=== PATIENT | male | born 1980 | race American Indian/Alaskan Native ===

== ENCOUNTER 2017-04-14 01:59 | Emergency (ER) | payer SELFPAY ==
[2017-04-14 03:12] VITALS: BP 143/99
[2017-04-14] MEDS ORDERED: MOTRIN PO ONE (04:52)
[2017-04-14] MEDS ORDERED: BOOSTRIX IM ONE (04:52)
--- NOTE | 2017-04-14 04:53 | Emergency Department Report ---
- General Chief Complaint: Wound/Laceration Stated Complaint: RT HAND THIRD FINGER LAC Time Seen by Provider: 04/14/17 04:46 Source: patient Mode of arrival: Ambulatory Limitations: No Limitations - History of Present Illness Initial Comments: This is a 37-year-old male nontoxic, well nourished in appearance, no acute signs of distress visit ED complaining of a laceration right middle finger status post smashed by a truck gate. Patient stated while he was closing the back truck at work and landed on his right middle finger which caused the laceration. He also complains of pain and swelling to her right middle finger. Denies any numbness, tingling, fever, chills, headache, chest pain, short of breath, nausea or vomiting. Patient describes pain as aching with level of 8 out of 10. Allergies to penicillin but denies significant past medical history. Patient stated this occurred around 2200 last night. -: Gradual, days(s) 1 - [address]: work Patient Tetanus UTD: No Context: accidental Associated Symptoms: pain. denies: loss of feeling/numbness, suspect foreign body present, unable to move injured part, weakness followed by dizziness, nausea/vomiting, fever - Related Data Previous Rx's Medication Instructions Recorded Last Taken Type Ibuprofen [Motrin 600 MG tab] 600 mg PO Q8H PRN #30 tablet 04/14/17 Unknown Rx Sulfamethoxazole/Trimethoprim 1 each PO BID #10 tablet 04/14/17 Unknown Rx [Bactrim DS TAB] Allergies Allergy/AdvReac Type Severity Reaction Status Date / Time Penicillins Allergy Anaphylaxis Verified 04/14/17 02:03 ED Review of Systems ROS: Stated complaint: RT HAND THIRD FINGER LAC Other details as noted in HPI Constitutional: denies: chills, fever Eyes: denies: eye pain, eye discharge, vision change ENT: denies: ear pain, throat pain Respiratory: denies: cough, shortness of breath, wheezing Cardiovascular: denies: chest pain, palpitations Endocrine: no symptoms reported Gastrointestinal: denies: abdominal pain, nausea, diarrhea Genitourinary: denies: urgency, dysuria Musculoskeletal: denies: back pain, joint swelling, arthralgia Skin: denies: rash, lesions Neurological: denies: headache, weakness, paresthesias Psychiatric: denies: anxiety, depression Hematological/Lymphatic: denies: easy bleeding, easy bruising ED Past Medical Hx - Past Medical History Previous Medical History?: No - Surgical History Past Surgical History?: No - Social History Smoking Status: Never Smoker Substance Use Type: Alcohol - Medications Home Medications: Home Medications Medication Instructions Recorded Confirmed Last Taken Type Ibuprofen [Motrin 600 MG tab] 600 mg PO Q8H PRN #30 tablet 04/14/17 Unknown Rx Sulfamethoxazole/Trimethoprim 1 each PO BID #10 tablet 04/14/17 Unknown Rx [Bactrim DS TAB] ED Physical Exam - General Limitations: No Limitations General appearance: alert, in no apparent distress - Head Head exam: Present: atraumatic, normocephalic, normal inspection - Eye Eye exam: Present: normal appearance, PERRL, EOMI. Absent: scleral icterus, conjunctival injection, nystagmus, periorbital swelling, periorbital tenderness Pupils: Present: normal accommodation - ENT ENT exam: Present: normal exam, normal orophraynx, mucous membranes moist, TM's normal bilaterally, normal external ear exam - Neck Neck exam: Present: normal inspection, full ROM. Absent: tenderness, meningismus, lymphadenopathy, thyromegaly - Respiratory Respiratory exam: Present: normal lung sounds bilaterally. Absent: respiratory distress, wheezes, rales, rhonchi, stridor, chest wall tenderness, accessory muscle use, decreased breath sounds, prolonged expiratory - Cardiovascular Cardiovascular Exam: Present: regular rate, normal rhythm. Absent: systolic murmur, diastolic murmur, rubs, gallop - GI/Abdominal GI/Abdominal exam: Present: soft, normal bowel sounds - Rectal Rectal exam: Present: deferred - Extremities Exam Extremities exam: Present: normal inspection, full ROM, normal capillary refill. Absent: tenderness, pedal edema, joint swelling, calf tenderness - Expanded Upper Extremity Exam Right Hand Wrist exam: Present: normal inspection, full ROM, tenderness (middle finger ), swelling (middle finger), laceration. Absent: abrasion, ecchymosis, deformity, crepidus, dislocation, erythema, amputation, nail avulsion, subungual hematoma Hand L/R Back: 1 - 1 cm superficial laceration. No pus or drainage. No fluctuance. Tenderness with slight swelling. No obvious signs of abscess. Neuro motor exam: Present: wrist extension intact, thumb opposition intact, thumb IP flexion intact, thumb adduction intact, fingers 2-5 abduction intact Neurosensory exam: Present: 2-point discrimination, radial nerve intact, ulnar nerve intact, median nerve intact Vascular: Present: vascular compromise, normal capillary refill, radial pulse, brachial pulse, ulnar pulse - Back Exam Back exam: Present: normal inspection, full ROM. Absent: tenderness, CVA tenderness (R), CVA tenderness (L), muscle spasm, paraspinal tenderness, vertebral tenderness, rash noted - Neurological Exam Neurological exam: Present: alert, oriented X3, CN II-XII intact, normal gait, reflexes normal - Psychiatric Psychiatric exam: Present: normal affect, normal mood - Skin Skin exam: Present: warm, dry, intact, normal color. Absent: rash ED Course Vital Signs 04/14/17 03:03 Temperature 98.6 F Pulse Rate 64 Respiratory 18 Rate Blood Pressure 143/99 O2 Sat by Pulse 100 Oximetry - Reevaluation(s) Reevaluation #1: 04/14/17 04:54 Patient is able speak full sentences with no signs of distress. - Laceration /Wound Repair Right Hand Wound Location: upper extremity (right proximal middle finger) Wound Length (cm): 1 Wound's Depth, Shape: superficial Wound Explored: clean Irrigated w/ Saline (ccs): 20 Betadine Prep?: Yes Wound Debrided: minimal Wound Repaired With: Dermabond Sterile Dressing Applied?: Yes Progress: Under sterile field, I used Betadine to clean the area. I then used 20 mL of normal saline to flush the area. I then dried area with normal saline. Dermabond has been applied to extremity. I then applied a sterile 4 x 4 with tape. No bleeding noted. Patient tolerated procedure well with no signs of distress. ED Medical Decision Making - Medical Decision Making ED course; this is a 37-year-old male that presents with laceration Patient is stable. Laceration was repaired with Dermabond. Patient received ibuprofen and tetanus booster and ED. Patient received Bactrim at discharge. Patient was instructed to follow up with primary care doctor in 3-5 days or if symptoms such as swelling, pus, drainage, numbness, joint swelling, fever, chills, joint redness return to the emergency room as soon as possible possible. X-ray has been obtained with negative findings of fracture or abnormalities. Dictated by radiologist. Patient was notified of x-ray findings with no further questions nor by the patient. Critical care attestation.: If time is entered above; I have spent that time in minutes in the direct care of this critically ill patient, excluding procedure time. ED Disposition Clinical Impression: Laceration Disposition: - TO HOME OR SELFCARE Is pt being admited?: No Does the pt Need Aspirin: No Condition: Stable Instructions: Skin Adhesive Care (ED), Ibuprofen (By mouth), Laceration (ED), Sulfamethoxazole/Trimethoprim (By mouth) Additional Instructions: follow up with primary care doctor in 3-5 days or if symptoms such as swelling, pus, drainage, numbness, joint swelling, fever, chills, joint redness return to the emergency room as soon as possible possible. Take full course of antibiotics prescribed. Prescriptions: Ibuprofen [Motrin 600 MG tab] 600 mg PO Q8H PRN #30 tablet PRN Reason: Pain Sulfamethoxazole/Trimethoprim [Bactrim DS TAB] 1 each PO BID #10 tablet Referrals: PRIMARY MD KELLY [Referring] - 3-5 Days HUYEN JULIEN MD [Staff Physician] - 3-5 Days [facility] [Outside] - 3-5 Days [facility] [Outside] - 3-5 Days Forms: Work/School Release Form(ED)
--- NOTE | 2017-04-16 16:33 | XRay Report ---
RIGHT HAND RADIOGRAPHS INDICATION: Hand trauma, a gate fell on right hand with pain, swelling and a wound on third digit. COMPARISON: None similar at this institution. FINDINGS: AP, lateral and oblique right hand radiographs demonstrate normal bones, joints and soft tissues. No radiopaque foreign body. CONCLUSION: No acute radiographic abnormality. Thank you for the opportunity to participate in this patient's care.
== END 2017-04-14 05:40 | disposition home or self-care (01) ==
LOC: ED 01:59
DX: S61.212A Laceration without foreign body of right middle finger without damage to nail, initial encounter (principal); W23.0XXA Caught, crushed, jammed, or pinched between moving objects, initial encounter; Y93.89 Activity, other specified; Y92.89 Other specified places as the place of occurrence of the external cause; Y99.8 Other external cause status; Z88.0 Allergy status to penicillin
CPT/HCPCS: 90471; 90715